=== PATIENT | female | born 1950 | race Caucasian/White ===

== ENCOUNTER 2020-12-15 12:51 | Observation (INO) | payer OTHER ==
[~2020-12-15] VITALS: Ht 167.6 cm; Wt 69.9 kg
[~2020-12-15 12:51] MED LIST changes: -ELIQUIS5 M2 PO; -LANOXIN125 MCG PO; -LOSA25 PO; -METO25ER PO; -MULVITA PO; -NYSTATIN SUSP MT; -SPIR25 PO; -TORSE20 PO; -Vitamin B Comple1 EA PO
[2020-12-15] MEDS ORDERED: MULVITA PO ×2 (13:56)
[2020-12-15 14:00] LABS: BASOPHILS ABSOLUTE AUTO 0.07 K/mm3 (0.00-0.23); BASOPHILS PERCENT AUTO 1 % (0-2); EOSINOPHILS ABSOLUTE AUTO 0.09 K/mm3 (0.00-0.68); EOSINOPHILS PERCENT AUTO 2 % (0-6); Hematocrit 45.1 % (33.0-51.0); Hemoglobin 15.2 g/dL (11.5-16.0); IMMATURE GRAN ABSOLUTE AUTO 0.03 K/mm3 (0.00-0.10); IMMATURE GRAN PERCENT AUTO 1 % (0-1); LYMPHOCYTES ABSOLUTE AUTO 1.86 K/mm3 (0.84-5.20); LYMPHOCYTES PERCENT AUTO 33 % (21-46); MONOCYTES ABSOLUTE AUTO 0.47 K/mm3 (0.16-1.47); MONOCYTES PERCENT AUTO 8 % (4-13); Mean Corpuscular HGB 32.9 pg (26.0-34.0); Mean Corpuscular HGB Conc 33.7 g/dL (31.5-36.5); Mean Corpuscular Volume 98 fL (80-100); Mean Platelet Volume 11.8 fL (9.1-12.4); NEUTROPHILS ABSOLUTE AUTO 3.18 K/mm3 (1.96-9.15); NEUTROPHILS PERCENT AUTO 56 % (41-73); Platelet Count 171 K/mm3 (150-400); RDW Coefficient Variation 12.5 % (11.7-14.2); RDW Standard Deviation 45.1 fL (35.1-46.3); Red Blood Cell Count 4.62 M/mm3 (3.80-5.20)
[2020-12-15 14:19] LABS: Troponin I <0.015 ng/mL (0.000-0.040)
[2020-12-15 14:20] LABS: Alanine Aminotransfer (ALT/SGP 48 U/L (12-78); Albumin, Blood 2.9 g/dL (3.4-5.0); Albumin/Globulin Ratio 0.8 (0.8-1.8); Alk Phos 131 U/L (50-136); Anion Gap 6 mmol/L (6-16); Aspartate Aminotrans (AST/SGOT 92 U/L (12-37); Bilirubin, Total 0.8 mg/dL (0.1-1.0); Blood Urea Nitrogen 9 mg/dL (8-24); Bun/Creatinine Ratio 14.4 (12.0-20.0); CO2, Blood 23 mmol/L (21-32); Calcium, Blood 8.1 mg/dL (8.5-10.1); Chloride, Blood 106 mmol/L (98-108); Creatinine, Blood 0.62 mg/dL (0.40-1.00); Globulin, Blood 3.7 g/dL (2.2-4.0); Glomerular Filtration Rate >60 (60-); Glucose, Blood 85 mg/dL (70-99); Potassium, Blood 4.3 mmol/L (3.5-5.5); Sodium, Blood 135 mmol/L (136-145); Total Protein, Blood 6.6 g/dL (6.4-8.2)
[2020-12-15 15:00] LABS: Ethanol (Alcohol), Blood, Med <3 mg/dL; Magnesium, Blood 1.9 mg/dL (1.6-2.4)
[2020-12-15 15:27] LABS: International Normalized Ratio 1.04; Prothrombin Time Results 11.2 Sec (9.7-11.5)
[2020-12-15] MEDS ORDERED: Vitamin B Comple1 EA PO ×2 (15:42)
--- NOTE | 2020-12-15 17:07 | NUR ---
Echocardiogram completed.
--- NOTE | 2020-12-15 19:20 | NUR ---
ASSUMED CARE OF PT, BEDSIDE REPORT RECEIVED. PT DENIES CP/PRESSURE, DENIES PALPITATIONS, DENIES N/V, DENIES DIZZINESS WHEN UP OOB, DENIES SOB/DYSPNEA. STATES THAT SHE IS ACTUALLY FEELING WELL OTHER THAN BEING HUNGRY SHE HASN'T EATEN MUCH TODAY. WILL CONTACT COMMERCIAL INTELLIGENCE MANAGER FOR DINNER TRAY. PT IS ALERT AND ORIENTED UP TO TOILET IND WITH STAFF IN ROOM FOR SAFETY. SHE USES CALL LIGHT WELL. HEAR RATE IS NOTED TO INCREASE FROM 130S TO 140-150S WITH UP OOB, PRESSURES SOFT BUT MAINTAINING MAP OF THIS TIME. EDEMA NOTED TO BILAT LOWER EXTREMITIES, PT STATES ONGOING X 2 MONTHS AND IS THE REASON FOR HER VISIT TO URGENT CARE TODAY. LUNGS ARE CLEAR THROUGHOUT, SATS MAINTAINING ON ROOM AIR, SPEAKING IN FULL SENTENCES WITHOUT VISIBLE INCREASED WORK OF BREATHING. WILL MONITOR.
--- NOTE | 2020-12-15 19:23 | NUR ---
New Admit from ER TO ICU 2 Pt in for AFIB WITH RVR, treated per emar. Pt states she wants CPR done but does not want to be intubated. code status changed to DNI from DNR. Dr. Vasquez made aware. Pt is A/O X 4, calm and cooperative. Able to follow directions and moves to bedside toilet without assitance. Pitting edema in lower extrems, pt states she has not history of Afib that she is aware of. Denies SOB, CP, and paplations at this time. BP stable and HR 120-150'S in AFIB. Lung sounds clear, on RA, SPO2 > 90%. Call light within reach. Will report to oncoming shift.
[2020-12-15 19:25] LABS: Free Thyroxine 0.83 ng/dL (0.70-1.60)
[2020-12-15 19:28] LABS: Triiodothyronine, Free 1.92 pg/mL (2.18-3.98)
[2020-12-16 03:38] LABS: BASOPHILS ABSOLUTE AUTO 0.06 K/mm3 (0.00-0.23); BASOPHILS PERCENT AUTO 2 % (0-2); EOSINOPHILS PERCENT AUTO 3 % (0-6); Hematocrit 41.5 % (33.0-51.0); Hemoglobin 14.3 g/dL (11.5-16.0); IMMATURE GRAN ABSOLUTE AUTO 0.02 K/mm3 (0.00-0.10); IMMATURE GRAN PERCENT AUTO 1 % (0-1); LYMPHOCYTES ABSOLUTE AUTO 1.43 K/mm3 (0.84-5.20); LYMPHOCYTES PERCENT AUTO 38 % (21-46); MONOCYTES PERCENT AUTO 11 % (4-13); Mean Corpuscular HGB 33.4 pg (26.0-34.0); Mean Corpuscular HGB Conc 34.5 g/dL (31.5-36.5); Mean Corpuscular Volume 97 fL (80-100); Mean Platelet Volume 11.6 fL (9.1-12.4); NEUTROPHILS ABSOLUTE AUTO 1.78 K/mm3 (1.96-9.15); NEUTROPHILS PERCENT AUTO 47 % (41-73); Platelet Count 143 K/mm3 (150-400); RDW Coefficient Variation 12.4 % (11.7-14.2); RDW Standard Deviation 44.4 fL (35.1-46.3); Red Blood Cell Count 4.28 M/mm3 (3.80-5.20); White Blood Cell Count 3.79 K/mm3 (4.00-11.30)
[2020-12-16 03:51] LABS: Anion Gap 5 mmol/L (6-16); Blood Urea Nitrogen 8 mg/dL (8-24); Bun/Creatinine Ratio 14.2 (12.0-20.0); CO2, Blood 24 mmol/L (21-32); Calcium, Blood 8.1 mg/dL (8.5-10.1); Chloride, Blood 108 mmol/L (98-108); Creatinine, Blood 0.57 mg/dL (0.40-1.00); Glomerular Filtration Rate >60 (60-); Glucose, Blood 73 mg/dL (70-99); Potassium, Blood 3.6 mmol/L (3.5-5.5); Sodium, Blood 137 mmol/L (136-145)
--- NOTE | 2020-12-16 05:53 | NUR ---
PT REMAINS ALERT AND ORIENTED THROUGHOUT SHIFT, HAS REPEATEDLY STATED THAT SHE HOPES TO BE DISCHARGED TO HOME THIS AM. AFIB CONTINUES, RATE IMPROVED, 60-70S WHEN AWAKE AND AT REST, HIGH 50S WITH SLEEP, INCREASES TO 120S WITH UP TO TOILET FOR VOIDS. PRESSURES MAINTAINING THROUGHOUT NOC. EDEMA TO BILAT DOES CONTINUE HOWEVER IS MARKEDLY IMPROVED, 1+ OF THIS TIME. LUNGS CLEAR THROUGHOUT WITH DIM BASES BILAT, SATS MAINTAIN ON ROOM AIR, NO INCREASED WORK OF BREATHING THROUGHOUT NOC. UP FREQUENTLY TO TOILET FOR VOIDS AND TOLERATES WELL.
--- NOTE | 2020-12-16 19:25 | NUR ---
PT TRANSPORTED TO UNIT VIA WHEELCHAIR BY [facility] AT 0714 AND HOOKED UP TO TELEMETRY, HEPARIN GTT INFUSING AT 12 UNITS/KG/HR OR 16.8ML/HR AT A 70KG DOSING WEIGHT, REPORT OBTAINED VIA PHONE AT 0743 FROM LEAN ENGINEER, PT IN AFIB IN 120'S UNTIL 1332 WHEN HER RATE DROPPED TO 80'S AND MAINTAINED, PT REPORTS DISPLEASURE ABOUT INCREASED FREQUENCY OF URINATION AFTER ADMINISTRATION OF A DIURETIC RX, PT RECEIVED HEART FAILURE AND ATRIAL FIBRILLATION EDUCATION VERBALLY AT BEDSIDE FROM MEDICAL STUDENT, HEPARIN GTT D/C'ED AT 1118, PT ASKED FOR MAGIC MOUTHWASH EQUIVALENT, DR. ARAGON WAS CALLED AT 1818 AND ORDER WAS PROVIDED, ASIDE FROM REPORTING DISPLEASURE ABOUT MEALS RECEIVED AND ABOUT BEING IN THE HOSPITAL, , PT DENIES ADDITIONAL CONCERNS AT THIS TIME
--- NOTE | 2020-12-17 05:30 | NUR ---
SHIFT SUMMARY PATIENT ALERT AND ORIENTED. HAD NO COMPLAINTS OF PAIN OR SHORTNESS OF BREATH. TELE REPORTED THAT THE PATIENT HAD A 3.17 SECOND PAUSE EARLIER THIS MORNING. PATIENT WAS ASYMPTOMATIC. IVS PATENT AND FLUSHED. BED IN LOWEST POSITION WITH WHEELS LOCKED. CALL LIGHT WITHIN REACH. REPORT GIVEN TO ONCMARY BARBA.
[2020-12-17 05:48] LABS: Anion Gap 5 mmol/L (6-16); Blood Urea Nitrogen 10 mg/dL (8-24); Bun/Creatinine Ratio 14.7 (12.0-20.0); CO2, Blood 27 mmol/L (21-32); Calcium, Blood 8.7 mg/dL (8.5-10.1); Chloride, Blood 102 mmol/L (98-108); Creatinine, Blood 0.68 mg/dL (0.40-1.00); Glomerular Filtration Rate >60 (60-); Glucose, Blood 81 mg/dL (70-99); Potassium, Blood 3.8 mmol/L (3.5-5.5); Sodium, Blood 134 mmol/L (136-145)
--- NOTE | 2020-12-17 06:01 | NUR ---
PHYSICIAN COMMUNICATION CONTACTED YOUTH CAREER SPECIALIST PHYSICIAN, DR LOPEZ, TO NOTIFY HER THAT THE PATIENT EXPERIENCED A 3.7 SECOND PAUSE IN HER HEARTRATE. ALSO INFORMED HER THAT THIS WAS THE SECOND PAUSE SINCE 0000. DR LOPEZ SAID TO STOP THE PATIENT'S METOPROLOL AND NOTIFY THE DAY SHIFT DOCTOR OF THE ISSUE.
[2020-12-17] MEDS ORDERED: ELIQUIS5 M2 PO ×2 (14:13)
[2020-12-17] MEDS ORDERED: LOSA25 PO ×2 (14:14)
[2020-12-17] MEDS ORDERED: LANOXIN125 MCG PO ×2 (14:15)
[2020-12-17] MEDS ORDERED: METO25ER PO ×2 (14:15)
[2020-12-17] MEDS ORDERED: SPIR25 PO ×2 (14:17)
[2020-12-17] MEDS ORDERED: NYSTATIN SUSP MT ×2 (14:17)
[2020-12-17] MEDS ORDERED: TORSE20 PO ×2 (14:19)
--- NOTE | 2020-12-17 15:03 | NUR ---
PATIENT DISCHARGED TO HOME, WILL BE PICKED UP BY A FRIEND. IV SALINE LOCKS REMOVED WITHOUT INCIDENT. TELEMETRY REMOVED. DISCUSSED HEART FAILURE AND NEW MEDICATIONS, GAVE NEXT DOSE INTERVAL TO AVOID CONFUSION ABOUT WHEN TO TAKE THEM. PATIENT VERBALIZED UNDERSTANDING OF D/C INSTRUCTIONS. OFF UNIT VIA W/C AT 1455. NO BELONGINGS LEFT BEHIND IN ROOM.
== END 2020-12-17 14:56 | disposition home or self-care (01) ==
LOC: ER 12:51 → ICUW 17:23 → ICUE 17:23 → PCU 12-16 07:17 → MEDS 12-16 23:38 → ENPENDDIS 12-17 13:26 → MEDS 12-17 14:56
PROVIDERS: Emergency Medicine; Internal Medicine Cardiovascular Disease; Physician Assistant; Student in an Organized Health Care Education/Training Program; ADMIT Internal Medicine
DX: I48.91 Unspecified atrial fibrillation (principal); I50.23 Acute on chronic systolic (congestive) heart failure; I08.1 Rheumatic disorders of both mitral and tricuspid valves; I27.20 Pulmonary hypertension, unspecified; J44.9 Chronic obstructive pulmonary disease, unspecified; R60.9 Edema, unspecified; E07.81 Sick-euthyroid syndrome; I95.2 Hypotension due to drugs; T46.1X5A Adverse effect of calcium-channel blockers, initial encounter; B37.9 Candidiasis, unspecified; F17.210 Nicotine dependence, cigarettes, uncomplicated; E87.70 Fluid overload, unspecified; R06.00 Dyspnea, unspecified; I51.7 Cardiomegaly; J98.4 Other disorders of lung; Z88.0 Allergy status to penicillin; Z88.5 Allergy status to narcotic agent; Z88.2 Allergy status to sulfonamides
CPT/HCPCS: 36415; 71046; 80048; 80053; 83690; 83735; 83880; 84439; 84443; 84481; 84484; 85025; 85610; 85730; 93005; 93010; 96365; 96366; 96375; 96376; 99285-25; A9270; C8929; G0378; G0480; J0610; J1160; J1610; J1644; J3475; J7030; Q9957

== ENCOUNTER → 2020-12-15 | Outpatient (CLI) | payer BC ==
[~2020-12-15] MED LIST: ELIQUIS5 M2 PO; LANOXIN125 MCG PO; LOSA25 PO; METO25ER PO; MULVITA PO; NYSTATIN SUSP MT; SPIR25 PO; TORSE20 PO; VITAMIN D22000 UNIT PO; Vitamin B Comple1 EA PO
[2020-12-15 11:48] LABS: BASOPHILS ABSOLUTE AUTO 0.07 K/mm3 (0.00-0.23); BASOPHILS PERCENT AUTO 1 % (0-2); EOSINOPHILS ABSOLUTE AUTO 0.09 K/mm3 (0.00-0.68); EOSINOPHILS PERCENT AUTO 2 % (0-6); Hematocrit 44.6 % (33.0-51.0); Hemoglobin 15.3 g/dL (11.5-16.0); IMMATURE GRAN ABSOLUTE AUTO 0.03 K/mm3 (0.00-0.10); IMMATURE GRAN PERCENT AUTO 1 % (0-1); LYMPHOCYTES ABSOLUTE AUTO 2.02 K/mm3 (0.84-5.20); LYMPHOCYTES PERCENT AUTO 35 % (21-46); MONOCYTES ABSOLUTE AUTO 0.54 K/mm3 (0.16-1.47); MONOCYTES PERCENT AUTO 9 % (4-13); Mean Corpuscular HGB 33.2 pg (26.0-34.0); Mean Corpuscular HGB Conc 34.3 g/dL (31.5-36.5); Mean Corpuscular Volume 97 fL (80-100); Mean Platelet Volume 11.5 fL (9.1-12.4); NEUTROPHILS ABSOLUTE AUTO 3.08 K/mm3 (1.96-9.15); NEUTROPHILS PERCENT AUTO 53 % (41-73); Platelet Count 174 K/mm3 (150-400); RDW Coefficient Variation 12.5 % (11.7-14.2); RDW Standard Deviation 44.6 fL (35.1-46.3); Red Blood Cell Count 4.61 M/mm3 (3.80-5.20); White Blood Cell Count 5.83 K/mm3 (4.00-11.30)
[2020-12-15 12:07] LABS: Alanine Aminotransfer (ALT/SGP 30 U/L (12-78); Albumin, Blood 3.2 g/dL (3.4-5.0); Albumin/Globulin Ratio 0.8 (0.8-1.8); Alk Phos 126 U/L (40-126); Anion Gap 8 mmol/L (6-16); Aspartate Aminotrans (AST/SGOT 43 U/L (12-37); Bilirubin, Total 0.8 mg/dL (0.1-1.0); Blood Urea Nitrogen 8 mg/dL (8-24); Bun/Creatinine Ratio 10.7 (12.0-20.0); CO2, Blood 25 mmol/L (21-32); Calcium, Blood 8.3 mg/dL (8.5-10.1); Chloride, Blood 100 mmol/L (98-108); Creatinine, Blood 0.75 mg/dL (0.40-1.00); Globulin, Blood 3.8 g/dL (2.2-4.0); Glomerular Filtration Rate >60 (60-); Glucose, Blood 91 mg/dL (70-99); Potassium, Blood 4.4 mmol/L (3.5-5.5); Sodium, Blood 133 mmol/L (136-145); Thyroid Stimulating Hormone 5.186 uIU/mL (0.360-4.800)
[2020-12-15 12:08] LABS: Troponin I <0.017 ng/mL (0.000-0.040)
== END | disposition home or self-care (01) ==
LOC: LAB SHORT 11:40 → LAB 11:40
PROVIDERS: Physician Assistant
DX: R60.9 Edema, unspecified (principal)
CPT/HCPCS: 80053; 83880; 84443; 84484; 85025

== ENCOUNTER → 2021-08-24 | Outpatient (CLI) | payer OTHER ==
[~2021-08-24] MED LIST changes: +ELIQUIS5 M2 PO; +LANOXIN125 MCG PO; +LOSA25 PO; +METO25ER PO; +MULVITA PO; +NYSTATIN SUSP MT; +SPIR25 PO; +TORSE20 PO; +Vitamin B Comple1 EA PO
[2021-08-24 11:43] LABS: Hematocrit 44.5 % (33.0-51.0); Hemoglobin 15.5 g/dL (11.5-16.0); Mean Corpuscular HGB 34.4 pg (26.0-34.0); Mean Corpuscular HGB Conc 34.8 g/dL (31.5-36.5); Mean Corpuscular Volume 99 fL (80-100); RDW Coefficient Variation 12.6 % (11.7-14.2); RDW Standard Deviation 45.8 fL (35.1-46.3)
[2021-08-24 12:04] LABS: Alanine Aminotransfer (ALT/SGP 21 U/L (12-78); Albumin, Blood 3.3 g/dL (3.4-5.0); Albumin/Globulin Ratio 0.9 (0.8-1.8); Alk Phos 73 U/L (40-126); Anion Gap 8 mmol/L (6-16); Aspartate Aminotrans (AST/SGOT 22 U/L (12-37); Bilirubin, Total 0.5 mg/dL (0.1-1.0); Blood Urea Nitrogen 8 mg/dL (8-24); Bun/Creatinine Ratio 11.6 (12.0-20.0); CO2, Blood 26 mmol/L (21-32); Chloride, Blood 99 mmol/L (98-108); Creatinine, Blood 0.69 mg/dL (0.40-1.00); Globulin, Blood 3.7 g/dL (2.2-4.0); Glomerular Filtration Rate >60 (60-); Glucose, Blood 86 mg/dL (70-99); Potassium, Blood 4.3 mmol/L (3.5-5.5); Sodium, Blood 133 mmol/L (136-145); Thyroid Stimulating Hormone 5.044 uIU/mL (0.360-4.800)
[2021-08-24 13:16] LABS: White Blood Cell Count 5.05 K/mm3 (4.00-11.30)
[2021-08-24 13:20] LABS: Digoxin (Lanoxin) 0.09 ug/mL (0.80-2.00)
[2021-08-24 13:23] LABS: BAND PERCENT MAN 2 % (0-8); BASOPHILS ABSOLUTE MAN 0.05 K/mm3 (0.00-0.23); BASOPHILS PERCENT MAN 1 % (0-2); EOSINOPHILS ABSOLUTE MAN 0.05 K/mm3 (0.00-0.68); EOSINOPHILS PERCENT MAN 1 % (0-6); LYMPHOCYTES ABSOLUTE MAN 1.56 K/mm3 (0.84-5.20); LYMPHOCYTES PERCENT MAN 31 % (21-46); MONOCYTES PERCENT MAN 12 % (4-13); NEUTROPHILS ABSOLUTE MAN 2.77 K/mm3 (1.96-9.15); SEG NEUTROPHILS PERCENT MAN 53 % (41-73); TOTAL CELLS COUNTED 100
[2021-08-24 13:26] LABS: Mean Platelet Volume 11.7 fL (9.1-12.4); Platelet Count 154 K/mm3 (150-400)
== END | disposition home or self-care (01) ==
LOC: LAB SHORT 11:35 → LAB 11:35
PROVIDERS: Physician Assistant
DX: I50.9 Heart failure, unspecified (principal); R53.81 Other malaise; R53.83 Other fatigue; R42 Dizziness and giddiness; R79.89 Other specified abnormal findings of blood chemistry
CPT/HCPCS: 80053; 80162; 83880; 84439; 84443; 84481; 84484; 85025

== ENCOUNTER → 2021-08-25 | Outpatient (CLI) | payer OTHER | LOC: LAB SHORT 12:06 | DX: R06.02 Shortness of breath (principal) | CPT/HCPCS: 83880 ==

== ENCOUNTER 2021-08-30 07:00 | Emergency (ER) | payer OTHER ==
[~2021-08-30] VITALS: Ht 165.1 cm; Wt 64.0 kg
[2021-08-30 07:36] LABS: BASOPHILS ABSOLUTE AUTO 0.03 K/mm3 (0.00-0.23); BASOPHILS PERCENT AUTO 1 % (0-2); EOSINOPHILS ABSOLUTE AUTO 0.03 K/mm3 (0.00-0.68); EOSINOPHILS PERCENT AUTO 1 % (0-6); Hematocrit 44.9 % (33.0-51.0); Hemoglobin 15.6 g/dL (11.5-16.0); IMMATURE GRAN ABSOLUTE AUTO 0.01 K/mm3 (0.00-0.10); IMMATURE GRAN PERCENT AUTO 0 % (0-1); LYMPHOCYTES PERCENT AUTO 18 % (21-46); MONOCYTES ABSOLUTE AUTO 0.42 K/mm3 (0.16-1.47); MONOCYTES PERCENT AUTO 8 % (4-13); Mean Corpuscular HGB 33.4 pg (26.0-34.0); Mean Corpuscular HGB Conc 34.7 g/dL (31.5-36.5); Mean Corpuscular Volume 96 fL (80-100); Mean Platelet Volume 11.4 fL (9.1-12.4); NEUTROPHILS ABSOLUTE AUTO 3.63 K/mm3 (1.96-9.15); NEUTROPHILS PERCENT AUTO 72 % (41-73); Platelet Count 177 K/mm3 (150-400); RDW Coefficient Variation 12.2 % (11.7-14.2); RDW Standard Deviation 43.2 fL (35.1-46.3); Red Blood Cell Count 4.67 M/mm3 (3.80-5.20); White Blood Cell Count 5.02 K/mm3 (4.00-11.30)
[2021-08-30 07:53] LABS: Alanine Aminotransfer (ALT/SGP 20 U/L (12-78); Albumin, Blood 3.3 g/dL (3.4-5.0); Albumin/Globulin Ratio 0.9 (0.8-1.8); Alk Phos 75 U/L (50-136); Anion Gap 6 mmol/L (6-16); Aspartate Aminotrans (AST/SGOT 19 U/L (12-37); Bilirubin, Total 0.5 mg/dL (0.1-1.0); Blood Urea Nitrogen 12 mg/dL (8-24); Bun/Creatinine Ratio 21.2 (12.0-20.0); CO2, Blood 28 mmol/L (21-32); Chloride, Blood 97 mmol/L (98-108); Creatinine, Blood 0.57 mg/dL (0.40-1.00); Globulin, Blood 3.7 g/dL (2.2-4.0); Glomerular Filtration Rate >60 (60-); Glucose, Blood 124 mg/dL (70-99); Potassium, Blood 4.2 mmol/L (3.5-5.5); Sodium, Blood 131 mmol/L (136-145)
== END 2021-08-30 09:35 | disposition home or self-care (01) ==
LOC: ER 07:00
PROVIDERS: Emergency Medicine
DX: I48.91 Unspecified atrial fibrillation (principal); I50.9 Heart failure, unspecified; J44.9 Chronic obstructive pulmonary disease, unspecified; F17.210 Nicotine dependence, cigarettes, uncomplicated; Z88.0 Allergy status to penicillin; Z88.2 Allergy status to sulfonamides; Z79.899 Other long term (current) drug therapy
CPT/HCPCS: 71045; 80053; 80162; 83880; 84484; 85025; 93005; 93010; 96374; 96375; 99284-25; J1940; J2765; J7030

== ENCOUNTER → 2021-09-02 | Outpatient (CLI) | payer OTHER ==
[2021-09-04 11:20] LABS: Stool Occult Bld Immuno 1 Negative (NEGATIVE)
== END | disposition home or self-care (01) ==
LOC: LAB SHORT 17:15
PROVIDERS: Family Medicine
DX: Z12.11 Encounter for screening for malignant neoplasm of colon (principal)
CPT/HCPCS: G0328

== ENCOUNTER → 2021-09-09 | Outpatient (CLI) | payer OTHER ==
[2021-09-09 09:48] LABS: BASOPHILS ABSOLUTE AUTO 0.04 K/mm3 (0.00-0.23); BASOPHILS PERCENT AUTO 1 % (0-2); EOSINOPHILS ABSOLUTE AUTO 0.07 K/mm3 (0.00-0.68); EOSINOPHILS PERCENT AUTO 2 % (0-6); Hematocrit 43.8 % (33.0-51.0); IMMATURE GRAN ABSOLUTE AUTO 0.04 K/mm3 (0.00-0.10); IMMATURE GRAN PERCENT AUTO 1 % (0-1); LYMPHOCYTES ABSOLUTE AUTO 1.54 K/mm3 (0.84-5.20); LYMPHOCYTES PERCENT AUTO 32 % (21-46); MONOCYTES ABSOLUTE AUTO 0.51 K/mm3 (0.16-1.47); MONOCYTES PERCENT AUTO 11 % (4-13); Mean Corpuscular HGB 33.9 pg (26.0-34.0); Mean Corpuscular HGB Conc 34.2 g/dL (31.5-36.5); Mean Corpuscular Volume 99 fL (80-100); NEUTROPHILS ABSOLUTE AUTO 2.56 K/mm3 (1.96-9.15); NEUTROPHILS PERCENT AUTO 54 % (41-73); Platelet Count 183 K/mm3 (150-400); RDW Coefficient Variation 12.4 % (11.7-14.2); Red Blood Cell Count 4.43 M/mm3 (3.80-5.20); White Blood Cell Count 4.76 K/mm3 (4.00-11.30)
[2021-09-09 10:06] LABS: Alanine Aminotransfer (ALT/SGP 24 U/L (12-78); Albumin/Globulin Ratio 0.8 (0.8-1.8); Alk Phos 73 U/L (40-126); Anion Gap 8 mmol/L (6-16); Aspartate Aminotrans (AST/SGOT 31 U/L (12-37); Bilirubin, Total 0.6 mg/dL (0.1-1.0); Blood Urea Nitrogen 6 mg/dL (8-24); Bun/Creatinine Ratio 9.1 (12.0-20.0); CO2, Blood 25 mmol/L (21-32); Calcium, Blood 8.1 mg/dL (8.5-10.1); Chloride, Blood 96 mmol/L (98-108); Creatinine, Blood 0.66 mg/dL (0.40-1.00); Globulin, Blood 3.8 g/dL (2.2-4.0); Glomerular Filtration Rate >60 (60-); Glucose, Blood 96 mg/dL (70-99); Magnesium, Blood 1.6 mg/dL (1.6-2.4); Potassium, Blood 4.6 mmol/L (3.5-5.5); Sodium, Blood 129 mmol/L (136-145); Thyroid Stimulating Hormone 4.619 uIU/mL (0.360-4.800); Total Protein, Blood 6.8 g/dL (6.4-8.2)
== END | disposition home or self-care (01) ==
LOC: LAB SHORT 09:44
PROVIDERS: Physician Assistant
DX: R53.83 Other fatigue (principal)
CPT/HCPCS: 80053; 83735; 84443; 85025

== ENCOUNTER → 2021-09-16 | Outpatient (CLI) | payer OTHER ==
[2021-09-17 14:42] LABS: Adenovirus F 40/41 Not Detected (NOT DETECT); Astrovirus Not Detected (NOT DETECT); Campylobacter Sp Not Detected (NOT DETECT); Cryptosporidium Not Detected (NOT DETECT); Cyclospora Cayetanensis Not Detected (NOT DETECT); E. Coli O157 Not Detected (NOT DETECT); Entamoeba Histolytica Not Detected (NOT DETECT); Enteroaggregative E. coli-EAEC Not Detected (NOT DETECT); Enteropathogenic E. coli-EPEC Not Detected (NOT DETECT); Enterotoxigenic E. coli-ETEC Not Detected (NOT DETECT); Giardia Lamblia Not Detected (NOT DETECT); Norovirus GI/GII Not Detected (NOT DETECT); Plesiomonas Shigelloides Not Detected (NOT DETECT); Rotavirus A Not Detected (NOT DETECT); Salmonella Sp Not Detected (NOT DETECT); Sapovirus Not Detected (NOT DETECT); Shiga Toxin-prod E. coli-STEC Not Detected (NOT DETECT); Shigella/Enteroin E. coli-EIEC Not Detected (NOT DETECT); Vibrio Cholerae Not Detected (NOT DETECT); Vibrio Sp Not Detected (NOT DETECT); Yersinia Enterocolitica Not Detected (NOT DETECT)
== END | disposition home or self-care (01) ==
LOC: LAB SHORT 11:35
PROVIDERS: Physician Assistant
DX: R19.7 Diarrhea, unspecified (principal)
CPT/HCPCS: 87507

== ENCOUNTER 2021-09-28 18:19 | Emergency (ER) | payer OTHER ==
[~2021-09-28] VITALS: Ht 165.1 cm; Wt 63.5 kg
[2021-09-28 18:42] LABS: BASOPHILS ABSOLUTE AUTO 0.03 K/mm3 (0.00-0.23); BASOPHILS PERCENT AUTO 1 % (0-2); EOSINOPHILS ABSOLUTE AUTO 0.12 K/mm3 (0.00-0.68); EOSINOPHILS PERCENT AUTO 2 % (0-6); Hematocrit 44.8 % (33.0-51.0); Hemoglobin 15.5 g/dL (11.5-16.0); IMMATURE GRAN ABSOLUTE AUTO 0.03 K/mm3 (0.00-0.10); IMMATURE GRAN PERCENT AUTO 1 % (0-1); LYMPHOCYTES ABSOLUTE AUTO 2.06 K/mm3 (0.84-5.20); LYMPHOCYTES PERCENT AUTO 33 % (21-46); MONOCYTES ABSOLUTE AUTO 0.72 K/mm3 (0.16-1.47); MONOCYTES PERCENT AUTO 11 % (4-13); Mean Corpuscular HGB 33.9 pg (26.0-34.0); Mean Corpuscular HGB Conc 34.6 g/dL (31.5-36.5); Mean Corpuscular Volume 98 fL (80-100); Mean Platelet Volume 11.1 fL (9.1-12.4); NEUTROPHILS ABSOLUTE AUTO 3.36 K/mm3 (1.96-9.15); NEUTROPHILS PERCENT AUTO 53 % (41-73); Platelet Count 190 K/mm3 (150-400); RDW Coefficient Variation 12.2 % (11.7-14.2); RDW Standard Deviation 44.6 fL (35.1-46.3); Red Blood Cell Count 4.57 M/mm3 (3.80-5.20); White Blood Cell Count 6.32 K/mm3 (4.00-11.30)
[2021-09-28 19:02] LABS: Albumin, Blood 3.2 g/dL (3.4-5.0); Albumin/Globulin Ratio 0.8 (0.8-1.8); Bilirubin, Total 0.4 mg/dL (0.1-1.0); Bun/Creatinine Ratio 14.4 (12.0-20.0); Calcium, Blood 8.3 mg/dL (8.5-10.1); Creatinine, Blood 0.49 mg/dL (0.40-1.00); Globulin, Blood 4.2 g/dL (2.2-4.0); Potassium, Blood 5.2 mmol/L (3.5-5.5); Total Protein, Blood 7.4 g/dL (6.4-8.2)
[2021-09-28 19:33] LABS: Digoxin (Lanoxin) 0.09 ug/mL (0.80-2.00)
== END 2021-09-28 21:06 | disposition home or self-care (01) ==
LOC: ER 18:19
PROVIDERS: Emergency Medicine; Physician Assistant
DX: I48.20 Chronic atrial fibrillation, unspecified (principal); J44.9 Chronic obstructive pulmonary disease, unspecified; I50.9 Heart failure, unspecified; F17.210 Nicotine dependence, cigarettes, uncomplicated; I49.3 Ventricular premature depolarization; E87.1 Hypo-osmolality and hyponatremia; Z88.0 Allergy status to penicillin; Z88.2 Allergy status to sulfonamides; Z88.5 Allergy status to narcotic agent; Z79.01 Long term (current) use of anticoagulants; Z79.899 Other long term (current) drug therapy
CPT/HCPCS: 71045; 80053; 80162; 83690; 83880; 84484; 85025

== ENCOUNTER 2023-02-16 07:51 | Day surgery (SDC) | payer OTHER ==
[~2023-02-16] VITALS: Ht 165.1 cm; Wt 62.4 kg
--- NOTE | 2023-02-16 08:24 | NUR ---
02/16/23 0824 Jojo Mcdonald: 0811 YANIV: [id number]
[2023-02-16 09:32] VITALS: BP 114/86
--- NOTE | 2023-02-16 09:38 | NUR ---
02/16/23 0938 Yosvany Cabezas IV REMOVED INTACT. SITE WNL.
== END 2023-02-16 09:45 | disposition home or self-care (01) ==
LOC: ORSCSDS 07:51
PROVIDERS: Student in an Organized Health Care Education/Training Program
PROC: 08RJ3JZ Replacement of Right Lens with Synthetic Substitute, Percutaneous Approach (ICD-10-PCS; principal; 2023-02-16 09:00)
DX: H25.13 Age-related nuclear cataract, bilateral (principal); I48.91 Unspecified atrial fibrillation; I50.9 Heart failure, unspecified; I63.9 Cerebral infarction, unspecified; Z86.73 Personal history of transient ischemic attack (TIA), and cerebral infarction without residual deficits; F17.210 Nicotine dependence, cigarettes, uncomplicated; Z79.899 Other long term (current) drug therapy
CPT/HCPCS: J2250; J7040; V2632

== ENCOUNTER 2023-04-05 12:31 | Day surgery (SDC) | payer OTHER ==
[~2023-04-05] VITALS: Ht 165.1 cm; Wt 59.4 kg
--- NOTE | 2023-04-05 12:57 | NUR ---
04/05/23 1257 Thais Basilio AT 1251 PLEDGET AT 1252
[2023-04-05 14:16] VITALS: BP 92/66
--- NOTE | 2023-04-05 14:17 | NUR ---
04/05/23 1417 Yosvany Cabezas IV REMOVED INTACT. SITE WNL. PT DENIES DIZZINESS, SOB, CHEST PAIN AND OTHER CARDIAC/RESPIRATORY SYMPTOMS. NONE WERE OBSERVED.
== END 2023-04-05 14:15 | disposition home or self-care (01) ==
LOC: ORSCSDS 12:31
PROVIDERS: Student in an Organized Health Care Education/Training Program
PROC: 08RK3JZ Replacement of Left Lens with Synthetic Substitute, Percutaneous Approach (ICD-10-PCS; principal; 2023-04-05 13:45)
DX: H25.12 Age-related nuclear cataract, left eye (principal); I48.91 Unspecified atrial fibrillation; J44.9 Chronic obstructive pulmonary disease, unspecified; Z86.73 Personal history of transient ischemic attack (TIA), and cerebral infarction without residual deficits; F17.210 Nicotine dependence, cigarettes, uncomplicated; R56.9 Unspecified convulsions; Z79.01 Long term (current) use of anticoagulants; Z79.899 Other long term (current) drug therapy
CPT/HCPCS: J2250; J3010; J7040; V2632

== ENCOUNTER 2023-06-14 15:19 | Inpatient (IN) | payer OTHER ==
[~2023-06-14] VITALS: Ht 165.1 cm; Wt 57.8 kg
[2023-06-14] VITALS (13 sets, daily range): BP systolic 77–116; BP diastolic 55–79
[2023-06-14 16:35] LABS: Magnesium, Blood 1.6 mg/dL (1.6-2.4)
[2023-06-14 16:42] LABS: Albumin, Blood 3.4 g/dL (3.4-5.0); Albumin/Globulin Ratio 0.9 (0.8-1.8); Bilirubin, Total 0.9 mg/dL (0.1-1.0); Bun/Creatinine Ratio 18.1 (12.0-20.0); Calcium, Blood 9.1 mg/dL (8.5-10.1); Creatinine, Blood 0.94 mg/dL (0.40-1.00); Globulin, Blood 3.8 g/dL (2.2-4.0); Potassium, Blood 2.3 mmol/L (3.5-5.5); Total Protein, Blood 7.2 g/dL (6.4-8.2)
[2023-06-14 16:45] LABS: BASOPHILS ABSOLUTE AUTO 0.02 K/mm3 (0.00-0.23); BASOPHILS PERCENT AUTO 0 % (0-2); EOSINOPHILS ABSOLUTE AUTO 0.04 K/mm3 (0.00-0.68); EOSINOPHILS PERCENT AUTO 1 % (0-6); Hematocrit 44.2 % (33.0-51.0); Hemoglobin 16.4 g/dL (11.5-16.0); IMMATURE GRAN ABSOLUTE AUTO 0.05 K/mm3 (0.00-0.10); IMMATURE GRAN PERCENT AUTO 1 % (0-1); LYMPHOCYTES PERCENT AUTO 29 % (21-46); MONOCYTES ABSOLUTE AUTO 0.55 K/mm3 (0.16-1.47); MONOCYTES PERCENT AUTO 10 % (4-13); Mean Corpuscular HGB 33.5 pg (26.0-34.0); Mean Corpuscular Volume 90 fL (80-100); Mean Platelet Volume 10.7 fL (9.1-12.4); NEUTROPHILS ABSOLUTE AUTO 3.34 K/mm3 (1.96-9.15); NEUTROPHILS PERCENT AUTO 60 % (41-73); NRBC ABSOLUTE 0.02 K/mm3 (0.00-0.02); NRBC Auto 0.4 /100 WBC (0.0-0.2); Platelet Count 163 K/mm3 (150-400); RDW Coefficient Variation 11.7 % (11.7-14.2); RDW Standard Deviation 38.5 fL (35.1-46.3); Red Blood Cell Count 4.89 M/mm3 (3.80-5.20)
[2023-06-14 16:50] LABS: Mean Corpuscular HGB Conc 37.1 g/dL (31.5-36.5)
[2023-06-14] MEDS ORDERED: TORS10 PO (17:31)
[2023-06-14 17:39] LABS: Phosphorus, Blood 4.3 mg/dL (2.5-4.9); Thyroid Stimulating Hormone 3.99 uIU/mL (0.360-4.800)
[2023-06-14 18:51] LABS: Ethanol (Alcohol), Blood, Med <3 mg/dL
[2023-06-14 19:24] LABS: Influenza A, PCR NEGATIVE (NEGATIVE); Influenza B, PCR NEGATIVE (NEGATIVE); Resp Syncytial Virus, PCR NEGATIVE (NEGATIVE); SARS-Cov-2 (COVID-19) PCR, MMC NEGATIVE (NEGATIVE)
[2023-06-14 21:08] LABS: Magnesium, Blood 2.6 mg/dL (1.6-2.4)
[2023-06-14 21:17] LABS: Albumin, Blood 3.1 g/dL (3.4-5.0); Anion Gap 8 mmol/L (6-16); Blood Urea Nitrogen 17 mg/dL (8-24); Bun/Creatinine Ratio 22.3 (12.0-20.0); CO2, Blood 36 mmol/L (21-32); Calcium, Blood 8.6 mg/dL (8.5-10.1); Chloride, Blood 75 mmol/L (98-108); Creatinine, Blood 0.76 mg/dL (0.40-1.00); Glomerular Filtration Rate 84 (60-); Glucose, Blood 97 mg/dL (70-99); Phosphorus, Blood 3.7 mg/dL (2.5-4.9); Potassium, Blood 2.7 mmol/L (3.5-5.5); Sodium, Blood 119 mmol/L (136-145)
[2023-06-14] MEDS ORDERED: ALEN70 (21:52)
[2023-06-14] MEDS ORDERED: METO100ER (21:54)
[2023-06-14] MEDS ORDERED: ALDACTONE25 MG PO (21:57)
[2023-06-14] MEDS ORDERED: TORSE20 PO (21:58)
--- NOTE | 2023-06-14 22:39 | NUR ---
ASSUMED CARE OF PATIENT AT 2116 AFTER ARRIVAL FROM ED. SEE SHIFT ASSESSMENT FOR FULL ASSESSMENT DETAILS.
[2023-06-14 23:43] LABS: Bun/Creatinine Ratio 21.1 (12.0-20.0); Calcium, Blood 8.1 mg/dL (8.5-10.1); Creatinine, Blood 0.71 mg/dL (0.40-1.00); Potassium, Blood 2.5 mmol/L (3.5-5.5)
[2023-06-15] VITALS (58 sets, daily range): BP systolic 48–138; BP diastolic 28–104
[2023-06-15 03:38] LABS: Albumin, Blood 2.8 g/dL (3.4-5.0); Anion Gap 4 mmol/L (6-16); Blood Urea Nitrogen 14 mg/dL (8-24); Bun/Creatinine Ratio 21.1 (12.0-20.0); CO2, Blood 35 mmol/L (21-32); Calcium, Blood 8.4 mg/dL (8.5-10.1); Chloride, Blood 85 mmol/L (98-108); Creatinine, Blood 0.66 mg/dL (0.40-1.00); Glomerular Filtration Rate 94 (60-); Glucose, Blood 90 mg/dL (70-99); Magnesium, Blood 2.2 mg/dL (1.6-2.4); Potassium, Blood 3.1 mmol/L (3.5-5.5); Sodium, Blood 124 mmol/L (136-145); Uric Acid, Blood 6.4 mg/dL (2.6-6.0)
[2023-06-15 03:56] LABS: BASOPHILS ABSOLUTE AUTO 0.03 K/mm3 (0.00-0.23); BASOPHILS PERCENT AUTO 1 % (0-2); EOSINOPHILS ABSOLUTE AUTO 0.04 K/mm3 (0.00-0.68); EOSINOPHILS PERCENT AUTO 1 % (0-6); Hematocrit 39.6 % (33.0-51.0); IMMATURE GRAN ABSOLUTE AUTO 0.04 K/mm3 (0.00-0.10); IMMATURE GRAN PERCENT AUTO 1 % (0-1); LYMPHOCYTES ABSOLUTE AUTO 1.36 K/mm3 (0.84-5.20); LYMPHOCYTES PERCENT AUTO 30 % (21-46); MONOCYTES ABSOLUTE AUTO 0.42 K/mm3 (0.16-1.47); MONOCYTES PERCENT AUTO 9 % (4-13); Mean Corpuscular HGB Conc 37.4 g/dL (31.5-36.5); Mean Corpuscular Volume 91 fL (80-100); Mean Platelet Volume 11.4 fL (9.1-12.4); NEUTROPHILS ABSOLUTE AUTO 2.72 K/mm3 (1.96-9.15); NEUTROPHILS PERCENT AUTO 59 % (41-73); Platelet Count 157 K/mm3 (150-400); RDW Coefficient Variation 11.8 % (11.7-14.2); RDW Standard Deviation 39.3 fL (35.1-46.3); Red Blood Cell Count 4.35 M/mm3 (3.80-5.20); White Blood Cell Count 4.61 K/mm3 (4.00-11.30)
[2023-06-15 04:07] LABS: Hemoglobin 14.8 g/dL (11.5-16.0)
--- NOTE | 2023-06-15 06:20 | NUR ---
SHIFT SUMMARY PT REMAINED ALERT AND ORIENTED THROUGHOUT ENTIRETY OF SHIFT. SHE WAS ABLE TO FOLLOW COMMANDS AND MAKE PURPOSEFUL MOVEMENTS. DENIED PAIN. PT IN AFIB WITH HR IN 30'S-40'S. DENIES CHEST PAIN. BP STABLE. MI ON RA THROUGHOUT ENTIRETY OF SHIFT. CONTINENT, UTILIZES BEDPAN. NO WITHDRAWAL SYMPTOMS AT THIS TIME. INDEPENDENT IN BED. POWERGLIDE INFILTRATED. WILL GIVE REVERSAL AND WRAP SITE AFTERWARDS. CALL LIGHT IN REACH.
[2023-06-15 07:45] LABS: Potassium, Blood 3.2 mmol/L (3.5-5.5)
[2023-06-15 11:18] LABS: International Normalized Ratio 1.07; Prothrombin Time Results 11.2 Sec (9.7-11.5)
[2023-06-15 11:19] LABS: Anti-Xa UFH, PHA Monitoring >1.50 IU/mL
[2023-06-15 14:06] LABS: Alanine Aminotransfer (ALT/SGP 22 U/L (12-78); Albumin, Blood 2.7 g/dL (3.4-5.0); Albumin/Globulin Ratio 0.8 (0.8-1.8); Alk Phos 70 U/L (50-136); Anion Gap 5 mmol/L (6-16); Aspartate Aminotrans (AST/SGOT 35 U/L (12-37); Bilirubin, Total 0.7 mg/dL (0.1-1.0); Blood Urea Nitrogen 10 mg/dL (8-24); Bun/Creatinine Ratio 18.6 (12.0-20.0); CO2, Blood 30 mmol/L (21-32); Calcium, Blood 8.6 mg/dL (8.5-10.1); Chloride, Blood 90 mmol/L (98-108); Creatinine, Blood 0.54 mg/dL (0.40-1.00); Globulin, Blood 3.6 g/dL (2.2-4.0); Glomerular Filtration Rate 98 (60-); Glucose, Blood 126 mg/dL (70-99); Magnesium, Blood 2.2 mg/dL (1.6-2.4); Potassium, Blood 3.3 mmol/L (3.5-5.5); Sodium, Blood 125 mmol/L (136-145); Total Protein, Blood 6.3 g/dL (6.4-8.2)
[2023-06-15 14:11] LABS: BASOPHILS ABSOLUTE AUTO 0.03 K/mm3 (0.00-0.23); BASOPHILS PERCENT AUTO 1 % (0-2); EOSINOPHILS ABSOLUTE AUTO 0.04 K/mm3 (0.00-0.68); EOSINOPHILS PERCENT AUTO 1 % (0-6); Hematocrit 40.7 % (33.0-51.0); Hemoglobin 15.1 g/dL (11.5-16.0); IMMATURE GRAN ABSOLUTE AUTO 0.03 K/mm3 (0.00-0.10); IMMATURE GRAN PERCENT AUTO 1 % (0-1); LYMPHOCYTES PERCENT AUTO 32 % (21-46); MONOCYTES ABSOLUTE AUTO 0.55 K/mm3 (0.16-1.47); MONOCYTES PERCENT AUTO 10 % (4-13); Mean Corpuscular HGB 33.9 pg (26.0-34.0); Mean Corpuscular HGB Conc 37.1 g/dL (31.5-36.5); Mean Corpuscular Volume 91 fL (80-100); Mean Platelet Volume 11.2 fL (9.1-12.4); NEUTROPHILS ABSOLUTE AUTO 3.26 K/mm3 (1.96-9.15); NEUTROPHILS PERCENT AUTO 57 % (41-73); Platelet Count 170 K/mm3 (150-400); RDW Coefficient Variation 11.9 % (11.7-14.2); RDW Standard Deviation 39.9 fL (35.1-46.3); Red Blood Cell Count 4.46 M/mm3 (3.80-5.20); White Blood Cell Count 5.71 K/mm3 (4.00-11.30)
--- NOTE | 2023-06-15 18:37 | NUR ---
SUMMARY PT A/O X4 RESTING IN BED. PT STILL HAVING CARDIAC PAUSES AT TIMES. DR. RAMAN AT BEDSIDE THIS AM WANTED TO REPLACE ELECTROLYTES AND SEE IF IT IMPROVED BEFORE CONSULTING CARDIOLOGY. PT HAD BEEN ASYMPTOMATIC DURING THE MORNING. AT 1319 MONITOR WAS ALARMING PAUSE THEN ASYSTOLE THEN PT HAD A 7.26 SECOND PAUSE, RAN IN THE ROOM PT WAS CONSCIOUS BUT PALE AND STATING "I FEEL SICK". PT'S RATE CAME BACK WITHOUT INTERVENTION BUT ON STAYING ON ZOLL. PT GOT A DOSE OF ZOFRAN. DR. WEBB CONSULTED AND TO BEDSIDE. WANTS TO WAIT UNTIL TUESDAY FOR PACEMAKER SINCE SHE HAS BEEN ON ELIQUIS. THE REST OF THE AFTERNOON PT WAS ASYMPTOMATIC AGAIN. DENIES CP OR SOB. THIS EVENING PT HAD AN 11 SECOND PAUSE. PT WAS BARELY CONSCIOUS, NAUSEATED, AND PALE. EXTERNALLY PACED BRIEFLY UNTIL HER INTRINSIC RHYTHM RETURNED. PT IS NOW A/O X4 AGAIN AND JOKING WITH STAFF. DR. WEBB NOTIFIED AND ELEVATED MOTORMAN TEAM ACTIVATED. REMAINS ON ZOLL AND NAUSEA HAS RESOLVED. WILL REPORT TO ONCOMING RN.
--- NOTE | 2023-06-15 19:13 | NUR ---
PT TAKEN TO MERCHANDISE DISPLAYER WITH MERCHANDISE DISPLAYER STAFF AT 1900
--- NOTE | 2023-06-15 19:13 | NUR ---
ASSUMED CARE OF PATIENT AT 1900. PATIENT BEING PREPPED FOR TRANSFER TO DANCING INSTRUCTOR FOR TRANSVENOUS PACING. SEE SHIFT ASSESSMENT FOR FULL ASSESSMENT DETAILS.
--- NOTE | 2023-06-15 22:03 | NUR ---
PATIENT BACK TO ROOM FROM [employer] WORK[employer] AT 2019 S/P TRANSVENOUS PACER. PACER SETTINGS RATE 50, SENSING 3, OUTPUT 5. DR. WEBB AT BEDSIDE, CONCERNS PACER NOT SENSING PROPERLY AND SENSE CHANGED FROM 3 TO 2. PACER APPEARED TO BE SENSING AND HAD GOOD CAPTURE UNTIL APPROX 2100, APPEARED TO NOT BE SENSING PROPERLY. CALLED DR. WEBB AND SENSE CHANGED TO 1. PACER THEN APPEARED TO NOT CAPTURE SEVERAL TIMES. TO BEDSIDE AND ADVANCED CATHETER APPROX .5-1 CM. SETTINGS RATE 50, OUTPUT 5, SENSE 2. PATIENT HEART RATE REMAINS ABOVE 50s. VERBAL ORDERS TO CHANGE SENSE TO 1 IF NEEDED AND RATE UP TO 80 IF NEEDED.
--- NOTE | 2023-06-15 22:46 | NUR ---
TRANSVENOUS PACER NO LONGER GETTING CAPTURE ON MOST BEATS, ATTEMPTED TO CHANGE RATE AND SENSE PER DR. WEBB, HR DROPS TO 40s OCCASIONALLY. DR. WEBB CALLED AND PATIENT TO GO BACK TO [facility].
--- NOTE | 2023-06-15 23:16 | NUR ---
PT TO SENIOR COMMISSARY AGENT WITH SENIOR COMMISSARY AGENT RN'S AT 4512
[2023-06-15 23:17] LABS: Bun/Creatinine Ratio 14.9 (12.0-20.0); Calcium, Blood 8.3 mg/dL (8.5-10.1); Creatinine, Blood 0.54 mg/dL (0.40-1.00); Potassium, Blood 3.5 mmol/L (3.5-5.5)
[2023-06-16] VITALS (68 sets, daily range): BP systolic 89–154; BP diastolic 54–128
--- NOTE | 2023-06-16 00:55 | NUR ---
PT BACK TO ICU 9 FROM BEHAVIORAL INTERVENTION SPECIALIST AT 0000
[2023-06-16 03:19] LABS: Hematocrit 39.2 % (33.0-51.0); Hemoglobin 14.3 g/dL (11.5-16.0)
[2023-06-16 03:35] LABS: Albumin, Blood 2.5 g/dL (3.4-5.0); Anion Gap 2 mmol/L (6-16); Blood Urea Nitrogen 6 mg/dL (8-24); Bun/Creatinine Ratio 10.9 (12.0-20.0); CO2, Blood 30 mmol/L (21-32); Calcium, Blood 8.1 mg/dL (8.5-10.1); Chloride, Blood 98 mmol/L (98-108); Creatinine, Blood 0.55 mg/dL (0.40-1.00); Glomerular Filtration Rate 98 (60-); Glucose, Blood 87 mg/dL (70-99); Phosphorus, Blood 2.2 mg/dL (2.5-4.9); Potassium, Blood 3.5 mmol/L (3.5-5.5); Sodium, Blood 130 mmol/L (136-145)
--- NOTE | 2023-06-16 06:13 | NUR ---
SHIFT SUMMARY BEFORE REPORT PT WAS NOTED TO HAVE AN 11 SECOND PAUSE AND WAS SYMPTOMATIC. VP TRAINING WAS ACTIVED AND PT WAS TRANSFERRED FOR TRANSVENOUS PACING. SHE RETURNED FROM THE VP TRAINING AT 2019. AROUND 2099 PACER DID NOT APPEAR TO BE SENSING PROPERLY. DR. WEBB CAME TO [facility] AND CHANGED PACER SETTINGS AND ADVANCED CATHETHER WELL (SEE PREVIOUS NOTES). PT BACK TO VP TRAINING AT 2313 AND RETURNED AT APPROXIMATELY 0000. DENIES SOB AND CP. PT REMAINED ALERT AND ORIENTED THROUGHOUT ENTIRETY OF SHIFT. ON RA UNTIL SHE ATTEMPTED TO GO TO SLEEP, AND WAS PLACED ON 2LPM WITH O2 SATURATIONS >95%. NO BM THIS SHIFT. UTILIZING BED DELACRUZ TO VOID. LAC INFUSING NS AND SODIUM PHOSPHATE. PER DR. LORD - NS TO BE STOPPED 06/16/23 @ 1200. CALL LIGHT IN REACH. WILL CONTINUE TO MONITOR AND REPORT TO ONCOMING RN.
--- NOTE | 2023-06-16 09:05 | NUR ---
CALLED DR. WEBB TO INFORM HIM OF A COUPLE SHORT RUNS OF VTACH. PT IS NAUSEATED AND STATES SHE FEELS DIZZY. DR. WEBB IS COMING TO SEE THE PT. TEMP PACER TO [facility].
--- NOTE | 2023-06-16 18:09 | NUR ---
SUMMARY PT A/O X4. DENIES CP OR SOB. STATES SHE FEELS DIZZY SOMETIMES. POOR APPETITE. PT HAS HAD A FEW RUNS OF VTACH AROUND [address] WEBB AWARE. TEMP PACER TO RIJ CAPTURING WITH SET RATE OF 50. DR. WEBB STARTED METOPROLOL TODAY. PT CAN MOVE SELF AROUND IN BED AND IS CONSCIOUS OF PACER TO RIJ. NO OTHER CHANGES TODAY. WILL BE NPO AFTER MIDNIGHT FOR PERMANENT PACER TOMORROW. CALL LIGHT IN REACH AND PT USES APPROPRIATELY.
--- NOTE | 2023-06-16 19:36 | NUR ---
ASSUMED CARE OF PATIENT AT 1900. FAMILY AT BEDSIDE. NO ACUTE NEEDS IDENTIFIED AT THIS TIME. SEE SHIFT ASSESSMENT FOR FULL ASSESSMENT DETAILS.
[2023-06-17] VITALS (45 sets, daily range): BP systolic 89–156; BP diastolic 51–142
[2023-06-17 03:53] LABS: BASOPHILS ABSOLUTE AUTO 0.02 K/mm3 (0.00-0.23); BASOPHILS PERCENT AUTO 0 % (0-2); EOSINOPHILS ABSOLUTE AUTO 0.02 K/mm3 (0.00-0.68); EOSINOPHILS PERCENT AUTO 0 % (0-6); Hematocrit 40.8 % (33.0-51.0); Hemoglobin 14.6 g/dL (11.5-16.0); IMMATURE GRAN ABSOLUTE AUTO 0.04 K/mm3 (0.00-0.10); IMMATURE GRAN PERCENT AUTO 0 % (0-1); LYMPHOCYTES ABSOLUTE AUTO 1.31 K/mm3 (0.84-5.20); LYMPHOCYTES PERCENT AUTO 15 % (21-46); MONOCYTES ABSOLUTE AUTO 0.57 K/mm3 (0.16-1.47); MONOCYTES PERCENT AUTO 6 % (4-13); Mean Corpuscular HGB 33.7 pg (26.0-34.0); Mean Corpuscular HGB Conc 35.8 g/dL (31.5-36.5); Mean Corpuscular Volume 94 fL (80-100); Mean Platelet Volume 10.8 fL (9.1-12.4); NEUTROPHILS ABSOLUTE AUTO 6.99 K/mm3 (1.96-9.15); NEUTROPHILS PERCENT AUTO 78 % (41-73); Platelet Count 154 K/mm3 (150-400); RDW Coefficient Variation 12.2 % (11.7-14.2); RDW Standard Deviation 42.6 fL (35.1-46.3); Red Blood Cell Count 4.33 M/mm3 (3.80-5.20); White Blood Cell Count 8.95 K/mm3 (4.00-11.30)
[2023-06-17 04:12] LABS: Albumin, Blood 2.5 g/dL (3.4-5.0); Albumin/Globulin Ratio 0.7 (0.8-1.8); Bilirubin, Total 1.1 mg/dL (0.1-1.0); Bun/Creatinine Ratio 7.4 (12.0-20.0); Calcium, Blood 8.4 mg/dL (8.5-10.1); Creatinine, Blood 0.54 mg/dL (0.40-1.00); Globulin, Blood 3.5 g/dL (2.2-4.0); Magnesium, Blood 1.7 mg/dL (1.6-2.4); Phosphorus, Blood 2.5 mg/dL (2.5-4.9); Potassium, Blood 3.5 mmol/L (3.5-5.5)
--- NOTE | 2023-06-17 06:40 | NUR ---
SHIFT SUMMARY PT REMAINED ALERT AND ORIENTED THROUGHOUT ENTIRETY OF SHIFT. MONITOR SHOWED PERIODS OF TACHY, HR 70'S-160'S. MEDICATED PER EMAR. SHE IS SCHEDULED TO HAVE PERMANENT PACEMAKER PLACED AT 0900. ON 2LPM O2 WITH SATURATIONS >95%. NO BM TODAY AND HAS BEEN NPO SINCE MIDNIGHT IN PREPARATION FOR PROCEDURE. UTILIZES BEDPAN. NEW PIV PLACED TO GAYLE PER DR. WEBB WHICH DRAWS AND FLUSHES WELL. LFA FLUSHES WELL. RAC INFUSING NS AT 50mL/HR. CALL LIGHT IN REACH. WILL CONTINUE TO MONITOR AND REPORT TO ONCOMING NURSE.
--- NOTE | 2023-06-17 07:00 | NUR ---
ASSUMPTION OF CARE BEDSIDE REPORT RECEIVED. PT IS ALERT, PARTICIPATES IN CONVERSATION. SHE HAS A RIJ TRANSVENOUS PACEMAKER IN PLACE WITH SETTINGS 50//3. AFIB ON MONITOR WITH RATE VARYING BETWEEN 80S-150S. HR INCREASES WITH ANY MOVEMENT OR EXCERTION. PT DENIES CP, DISCOMFORT, OR SOB DURING THESE EPISODES. BP STABLE WITH MAP >65. NPO SINCE MIDNIGHT. SHE IS RECEIVING NS 50ML/HR. BED IN LOW POSITION, CALL LIGHT WITHIN REACH.
--- NOTE | 2023-06-17 07:30 | NUR ---
DR WEBB AT BEDSIDE.
--- NOTE | 2023-06-17 09:46 | NUR ---
PT TAKEN TO WOOD CASKET ASSEMBLER AT THIS TIME
--- NOTE | 2023-06-17 13:27 | NUR ---
POST PACER: PATIENT ARRIVES TO PCU 18 AT 1152 VIA BED. ALERT AND ORIENTED X4. PERRLA, GLASSES AT BEDSIDE. DENTURES IN PLACE. PATIENT STATES SHE IS IND AT BASELINE AND DOES NOT USE ANY WALKER OR CANE. MOVING EXTREMITIES WNL. S/P PACER PRECAUTIONS REVIEWED. DR. WEBB TO BEDSIDE. ORDERS FOR ICE PACK OVER PACER SITE FOR 4 HOURS AND NO SLING. CHEST XRAY COMPLETED. TELE SHOWING PACED AFIB WITH HR 70-80'S. SBP 90-110'S. DENIES CHEST PAIN/PRESSURE/PALPITATIONS. S/P PACER PRECAUTIONS REVIEWED AND WRITTEN INSTRUCTIONS PROVIDED WELL. IV SALINE INFUSING PER EMAR. PACER SITE WNL WITH VERY SCANT DRAINAGE ON DRESSING. NO SIGNS OF HEMATOMA. LEFT ARM RESTING ON PILLOW. PPP. PO METOPROLOL GIVEN PER EMAR. POST PROCEDURE VITALS IN PROGRESS. PLAN FOR CHEST XRAY IN AM. ON ROOM AIR SATING ABOVE 95%. LUNGS SOUNDING COARSE. PATIENT STATES SHE IS EVERYDAY SMOKER. COARSE SOUNDING COUGH WITH SPUTUM PRODUCTION. PATIENT REQUESTING SUCTION SET UP. EVEN AND UNLABORED RESPIRATIONS. BOWEL TONES PRESENT. DIET ORDERS IN PLACE POST PROCEDURE. EATING AND DRINKING WNL. FLUID RESTRICTION IN PLACE. STAT SODIUM ORDERED POST PROCEDURE PER DR. LORD. THIS RN PLACED CALL TO UPDATE DR. LORD ON SODIUM RESULTS. ORDERS TO DISCONTINUE NS AT 1500 ON 06/17. NURSE NOTIFY ORDERS IN PLACE. CALL LIGHT IN REACH. PATIENT WATCHING TV AT THIS TIME AND DENIES NEEDS. SON AND FRIEND BY TO VISIT, UPDATED BY THIS RN.
[2023-06-17 15:47] LABS: ALDOSTERONE 26.3 ng/dL; ALDOSTERONE/RENINACTIVITY CALC 9.1 ratio (<=25.0); RENIN ACTIVITY 2.9 ng/mL/hr
--- NOTE | 2023-06-17 16:36 | NUR ---
PATIENT UP TO BATHROOM WITH ONE PERSON ASSIST. ABLE TO FOLLOW LEFT SHOULDER PRECAUTIONS WITH REMINDERS. WHEN UP TO BATHROOM PATIENT HR TACHING UP TO 140-150'S. PATIENT DENIES CHEST PAIN/PRESSURE/PALPIATIONS, SOB, DIZZINESS. BACK TO BED AND HR 80-110'S. SBP 100'S.
--- NOTE | 2023-06-17 16:54 | NUR ---
DR. COOPER ON UNIT AND THIS RN MENTIONED PATIENT HR IN THE 150'S WITH ACTIVITY UP TO BATHROOM, SEE PREVIOUS NOTE. DR. COOPER TO PLACE ORDER CHANGES TO METOPROLOL. THIS RN ALSO MENTIONED HOME MED REC NOT BEING ACCURATE ON HOME METOPROLOL SUCCINATE DOSE. THIS RN ABLE TO SEE PATIENT WAS MAILED METOPROLOL SUCCINATE 100MG PO BID ON 05/04/24 WHICH WAS PRESCRIBED BY DR. MARCIAL. PATIENT CONFIRMED THIS DOSE WITH THIS RN AND HAD HAND WRITTEN MEDICATION LIST IN PURSE THAT THIS RN WAS ABLE TO CONFIRM.
--- NOTE | 2023-06-17 17:10 | NUR ---
PATIENT HAD 5 RUN BEAT OF VTACH. DR. WEBB CALLED AND UPDATED HR UP TO 150'S WHEN UP TO BATHROOM, 5 RUN BEAT OF VTACH AND INCREASE OF METOPROLOL SUCCINATE DOSE. NO NEW ORDERS FOR THIS RN TO PLACE. PLAN TO MONITOR BLOOD PRESSURE WITH INCREASE DOSE OF METOPROLOL.
[2023-06-17 21:09] LABS: BASOPHILS ABSOLUTE AUTO 0.04 K/mm3 (0.00-0.23); BASOPHILS PERCENT AUTO 1 % (0-2); EOSINOPHILS ABSOLUTE AUTO 0.06 K/mm3 (0.00-0.68); EOSINOPHILS PERCENT AUTO 1 % (0-6); Hematocrit 38.1 % (33.0-51.0); Hemoglobin 13.8 g/dL (11.5-16.0); IMMATURE GRAN ABSOLUTE AUTO 0.03 K/mm3 (0.00-0.10); IMMATURE GRAN PERCENT AUTO 0 % (0-1); LYMPHOCYTES ABSOLUTE AUTO 1.02 K/mm3 (0.84-5.20); LYMPHOCYTES PERCENT AUTO 14 % (21-46); MONOCYTES ABSOLUTE AUTO 0.53 K/mm3 (0.16-1.47); MONOCYTES PERCENT AUTO 8 % (4-13); Mean Corpuscular HGB 34.4 pg (26.0-34.0); Mean Corpuscular HGB Conc 36.2 g/dL (31.5-36.5); Mean Corpuscular Volume 95 fL (80-100); Mean Platelet Volume 11.1 fL (9.1-12.4); NEUTROPHILS ABSOLUTE AUTO 5.43 K/mm3 (1.96-9.15); NEUTROPHILS PERCENT AUTO 76 % (41-73); Platelet Count 149 K/mm3 (150-400); RDW Coefficient Variation 12.3 % (11.7-14.2); RDW Standard Deviation 43.5 fL (35.1-46.3); Red Blood Cell Count 4.01 M/mm3 (3.80-5.20); White Blood Cell Count 7.11 K/mm3 (4.00-11.30)
[2023-06-18] VITALS (9 sets, daily range): BP systolic 88–136; BP diastolic 55–89
[2023-06-18 05:36] LABS: Hematocrit 38.4 % (33.0-51.0); Hemoglobin 13.7 g/dL (11.5-16.0)
[2023-06-18 06:14] LABS: Magnesium, Blood 1.6 mg/dL (1.6-2.4)
[2023-06-18 06:15] LABS: Albumin, Blood 2.2 g/dL (3.4-5.0); Anion Gap 4 mmol/L (6-16); Blood Urea Nitrogen 3 mg/dL (8-24); Bun/Creatinine Ratio 6.8 (12.0-20.0); CO2, Blood 25 mmol/L (21-32); Calcium, Blood 8.6 mg/dL (8.5-10.1); Chloride, Blood 104 mmol/L (98-108); Creatinine, Blood 0.44 mg/dL (0.40-1.00); Glomerular Filtration Rate 103 (60-); Glucose, Blood 79 mg/dL (70-99); Phosphorus, Blood 2.5 mg/dL (2.5-4.9); Potassium, Blood 3.6 mmol/L (3.5-5.5); Sodium, Blood 133 mmol/L (136-145)
--- NOTE | 2023-06-18 06:15 | NUR ---
SHIFT SUMMARY PATIENT ALERT AND ORIENTED X4. MEDICATED PER EMAR FOR PAIN AT SHIFT CHANGE, PATIENT REPORTED THAT SHE WAS COMFORTABLE THE REST OF THE NIGHT. PATIENT DENIES CHEST PAIN AND SHORTNESS OF BREATH. PATIENT IS ON ROOM AIR WITH SPO2 >90%. BLOOD PRESSURE HYPOTENSIVE AT TIMES, HOWEVER MAP HAS REMAINED >65. PATIENT IS AFIB ON TELE, HAS BEEN IN THE 80'S AT REST, UP TO THE 140'S WITH ACTIVITY. WILL CONTINUE TO MONITOR. CALL LIGHT WITHIN REACH.
--- NOTE | 2023-06-18 09:57 | NUR ---
AM NOTE: PATIENT ALERT AND ORIENTED X4. WEARING GLASSES, PERRLA. DENIES NUMBNESS/TINGLING. CHRONIC BILATERAL HIP PAIN, PATIENT STATES SHE HAS "BONE SPURS" IN LEFT HIP. DENIES HIP PAIN THIS AM. ABLE TO TURN SELF IN BED. LEFT SHOULDER PRECAUTIONS S/P PACER ON 06/17. TELE SHOWING AFIB PACED WITH HR 80'S-100'S AT REST. UP TO 130'S THIS AM WITH MOVEMENT IN BED. SBP 110-120'S. DENIES CHEST PAIN/PRESSURE. COMPLAINS OF SOME SORENESS RELATED TO PACER SITE. DR. WEBB IN THIS AM AND PACER DRESSING CHANGED PER ORDERS OF 4X4 NONADHERANT GAUZE AND PAPER TAPE. WOUND CHECK AND PACER CLINIC APPOINTMENT SET UP. PLAN FOR CHEST XRAY THIS AM. PACER INTERROGATION COMPLETED. PO METOPROLOL GIVEN PER EMAR. PLAN TO GET UP AND SEE HOW HR DOES WITH ACTIVITY. NEW PACER DRESSING C/D/I. VERY SMALL AMOUNT OF BRUISING AT NEW PACER SITE. ON ROOM AIR SATING ABOVE 95%. DENIES SOB. OCCASIONAL COUGH WITH SPUTUM PRODUCTION, PATIENT USING SUCTION IND. EVEN AND UNLABORED RESPIRATIONS. DENIES NICOTINE PATCH THIS AM. BOWEL TONES PRESENT. POOR APPEATITE. FREE WATER RESTRICTION. EATING AND VOIDING WNL. DR. LORD BY THIS AM, THIS RN AT BEDSIDE. PLAN FOR WHEN PATIENT DISCHARGES TO BE ON SALT TABLETS, FREE WATER RESTRICTION OF 1L/DAY AND TO FOLLOW UP THIS TUESDAY AT 2PM IN DR. CARLOS OFFICE. CALL LIGHT IN REACH. DENIES NEEDS AT THIS TIME.
--- NOTE | 2023-06-18 10:29 | NUR ---
PATIENT TO XRAY AT THIS TIME
--- NOTE | 2023-06-18 10:51 | NUR ---
PATIENT BACK FROM CHEST XRAY AT THIS TIME AND UP TO BATHROOM WITH ONE PERSON ASSIST. PATIENT HR TOUCHING 170'S WITH ACTIVITY. PATIENT SLIGHTLY SOB WITH ELEVATED HR BUT DENIES ANY CHEST PAIN/PRESSURE/PALPITATIONS. DR. COOPER UPDATED ON ELEVATED HR WITH ACTIVITY. PATIENT BACK IN BED AT THIS TIME AND HR 90-120'S.
--- NOTE | 2023-06-18 13:42 | NUR ---
PATIENT CONTINUES TO TACH UP TO 140'S WITH MOVEMENT IN BED AND GETTING UP TO RECLINER. PATIENT DOES NOT SUSTAIN 140'S. HR TRENDS DOWN TO 80-120'S ONCE PATIENT SITS OR SETTLES DOWN. DR. COOPER UPDATED ON HR ACTIVITY/TRENDS. ORDERS TO INCREASE METOPROLOL SUCCINATE TO 100MG PO BID STARTING TONIGHT WELL ORDERS FOR MEDICAL STATUS WITH TELE. ORDERS IN PLACE, PADDOCK JUDGE AND STAFF PSYCHIATRIST UPDATED. PATIENT RESTING IN BED AT THIS TIME, DENIES NEEDS. CALL LIGHT IN REACH.
--- NOTE | 2023-06-18 18:50 | NUR ---
SHIFT SUMMARY: NO ACUTE CHANGES. PATIENT REMAINS ALERT AND ORIENTED X4. VITAL SIGNS STABLE. HR TRENDING 70-80'S AT REST UP TO 120-130'S WHEN UP TO RECLINER FOR DINNER. SBP STABLE 130'S. DENIES CHEST PAIN/PRESSURE/PALPITATIONS. LEFT CHEST WALL PACER WNL WITH SLIGHT BRUISING. DRESSING REMAINS C/D/I. POOR APPEATITE. FLUID RESTRICTION IN PLACE. UP TO BATHROOM WITH ONE PERSON ASSIST. FAMILY AT BEDSIDE THROUGHOUT SHIFT. DENIES NEEDS AT THIS TIME. CALL LIGHT IN REACH.
[2023-06-19 04:01] LABS: BASOPHILS ABSOLUTE AUTO 0.02 K/mm3 (0.00-0.23); BASOPHILS PERCENT AUTO 1 % (0-2); EOSINOPHILS ABSOLUTE AUTO 0.07 K/mm3 (0.00-0.68); EOSINOPHILS PERCENT AUTO 2 % (0-6); Hematocrit 36.8 % (33.0-51.0); IMMATURE GRAN ABSOLUTE AUTO 0.04 K/mm3 (0.00-0.10); IMMATURE GRAN PERCENT AUTO 1 % (0-1); LYMPHOCYTES ABSOLUTE AUTO 1.19 K/mm3 (0.84-5.20); LYMPHOCYTES PERCENT AUTO 27 % (21-46); MONOCYTES ABSOLUTE AUTO 0.47 K/mm3 (0.16-1.47); MONOCYTES PERCENT AUTO 11 % (4-13); Mean Corpuscular HGB 33.8 pg (26.0-34.0); Mean Corpuscular HGB Conc 35.3 g/dL (31.5-36.5); Mean Corpuscular Volume 96 fL (80-100); Mean Platelet Volume 10.9 fL (9.1-12.4); NEUTROPHILS PERCENT AUTO 59 % (41-73); Platelet Count 132 K/mm3 (150-400); RDW Coefficient Variation 12.4 % (11.7-14.2); RDW Standard Deviation 43.6 fL (35.1-46.3); Red Blood Cell Count 3.85 M/mm3 (3.80-5.20); White Blood Cell Count 4.39 K/mm3 (4.00-11.30)
[2023-06-19 04:21] VITALS: BP 107/68
[2023-06-19 04:28] LABS: Albumin, Blood 2.3 g/dL (3.4-5.0); Anion Gap 3 mmol/L (6-16); Blood Urea Nitrogen 5 mg/dL (8-24); Bun/Creatinine Ratio 10.2 (12.0-20.0); CO2, Blood 25 mmol/L (21-32); Calcium, Blood 8.6 mg/dL (8.5-10.1); Chloride, Blood 105 mmol/L (98-108); Creatinine, Blood 0.49 mg/dL (0.40-1.00); Glomerular Filtration Rate 101 (60-); Glucose, Blood 105 mg/dL (70-99); Magnesium, Blood 1.6 mg/dL (1.6-2.4); Phosphorus, Blood 2.3 mg/dL (2.5-4.9); Potassium, Blood 3.1 mmol/L (3.5-5.5); Sodium, Blood 133 mmol/L (136-145)
--- NOTE | 2023-06-19 06:55 | NUR ---
END OF SHIFT NOTE. PT HAD AN UNEVENTFUL SHIFT. OOB MULTIPLE TIMES TO THE BATHROOM, MINIMAL ASSISTANCE FROM STAFF. HR MORE CONTROLLED WHEN MOVING. PT IS ABLE TO MAKE NEEDS KNOWN, CALL LIGHT IS WITHIN REACH.
[2023-06-19 07:22] VITALS: BP 108/65
--- NOTE | 2023-06-19 10:04 | NUR ---
AM NOTE: PATIENT ALERT AND ORIENTED X4. PERRLA, WEARING GLASSES. LEFT SHOULDER PRECAUTIONS POST PACER PLACEMENT. DRESSING C/D/I. AFIB WITH HR 60-100'S. ONE PERSON ASSIST TO BATHROOM/RECLINER. EATING AND VOIDING WNL. IV PHOSPHATE INFUSING AT THIS TIME. ON ROOM AIR SATING ABOVE 95%. DENIES NEEDS, CALL LIGHT IN REACH.
[2023-06-19 11:50] VITALS: BP 120/57
[2023-06-19] MEDS ORDERED: B-1100 M1 PO (12:19)
[2023-06-19] MEDS ORDERED: SODCHL1 PO (12:19)
[2023-06-19] MEDS ORDERED: NICO21TP TOP (12:19)
--- NOTE | 2023-06-19 13:06 | NUR ---
DISCHARGE: NO ACUTE CHANGES. PATIENT DISCHARGE WNL. MEDS FAXED TO [facility]. THIS RN REVIEWED MEDICATION, NEW MEDICATIONS, S/S TO RETURN, PACER INSTRUCTIONS, PACER WOUND APPOINTMENT, PACER CLINIC APPOINTMENT, DR. LORD FOLLOW UP, FLUID RESTRICTION, PCP FOLLOW UP AND STOPPED MEDICATIONS. IV REMOVED WNL. SONS IN TO FRONT COUNTER CLERK PATIENT. PATIENT LEFT UNIT VIA WHEELCHAIR WITH ALL PERSONAL BELONGINGS.
== END 2023-06-19 13:09 | disposition home or self-care (01) | DRG 243 ==
LOC: ER 15:19 → ICUE 20:32 → PCU 06-17 11:47
PROVIDERS: Emergency Medicine; Internal Medicine; Internal Medicine Nephrology; Nurse Practitioner Acute Care; Physician Assistant; ADMIT Internal Medicine
PROC: 02HK3JZ Insertion of Pacemaker Lead into Right Ventricle, Percutaneous Approach (ICD-10-PCS; principal; 2023-06-15)
PROC: 5A1223Z Performance of Cardiac Pacing, Continuous (ICD-10-PCS; 2023-06-15)
PROC: 0JH604Z Insertion of Pacemaker, Single Chamber into Chest Subcutaneous Tissue and Fascia, Open Approach (ICD-10-PCS; 2023-06-17)
PROC: 02HK3JZ Insertion of Pacemaker Lead into Right Ventricle, Percutaneous Approach (ICD-10-PCS; 2023-06-17)
DX: I49.5 Sick sinus syndrome (principal); E87.1 Hypo-osmolality and hyponatremia; I13.0 Hypertensive heart and chronic kidney disease with heart failure and stage 1 through stage 4 chronic kidney disease, or unspecified chronic kidney disease; S22.42XA Multiple fractures of ribs, left side, initial encounter for closed fracture; I48.21 Permanent atrial fibrillation; N17.9 Acute kidney failure, unspecified; I50.22 Chronic systolic (congestive) heart failure; E87.3 Alkalosis; I42.9 Cardiomyopathy, unspecified; F17.210 Nicotine dependence, cigarettes, uncomplicated; F10.20 Alcohol dependence, uncomplicated; E86.0 Dehydration; E87.6 Hypokalemia; J44.9 Chronic obstructive pulmonary disease, unspecified; I45.5 Other specified heart block; H26.9 Unspecified cataract; N18.9 Chronic kidney disease, unspecified; E88.09 Other disorders of plasma-protein metabolism, not elsewhere classified; E83.39 Other disorders of phosphorus metabolism; E83.42 Hypomagnesemia; X58.XXXA Exposure to other specified factors, initial encounter; Z88.0 Allergy status to penicillin; Z88.2 Allergy status to sulfonamides; Z88.5 Allergy status to narcotic agent; Z79.01 Long term (current) use of anticoagulants; Z79.899 Other long term (current) drug therapy; Z98.890 Other specified postprocedural states; D75.1 Secondary polycythemia
CPT/HCPCS: 0241U; 33207; 33210; 36415; 71045; 71046; 76937; 80048; 80053; 80069; 80400; 82088; 82533; 83605; 83690; 83735; 83880; 83930; 84100; 84132; 84244; 84295; 84443; 84484; 84550; 85014; 85018; 85025; 85520; 85610; 85730; 93005; 93010; 93308; 96365; 96366; 96368; 99152; 99153; 99291-25; A9270; C1751; C1769; C1781; C1786; C1894; C1898; J0834; J1644; J1650; J2250; J2405; J3010; J3370; J3470; J3475; J3480; J7030; J7040; J7050; J7060; Q9967

== ENCOUNTER → 2023-06-29 | Outpatient (CLI) | payer OTHER ==
[~2023-06-29] MED LIST changes: +ALDACTONE25 MG PO; +ALEN70; +B-1100 M1 PO; +METO100ER; +NICO21TP TOP; +SODCHL1 PO; +TORS10 PO
[2023-06-29 19:15] LABS: Protein, Urine Quantitative 5.5 mg/dL (0.0-11.9)
[2023-06-29 19:19] LABS: Microalbumin, Urine Quant. <5.000 mg/L (0.000-20.000)
== END | disposition home or self-care (01) ==
LOC: LAB 13:15 → LAB SHORT 13:15
PROVIDERS: Family Medicine
DX: E87.1 Hypo-osmolality and hyponatremia (principal); N18.2 Chronic kidney disease, stage 2 (mild); D63.1 Anemia in chronic kidney disease; N25.81 Secondary hyperparathyroidism of renal origin; E55.9 Vitamin D deficiency, unspecified; E78.00 Pure hypercholesterolemia, unspecified; R76.9 Abnormal immunological finding in serum, unspecified; R94.5 Abnormal results of liver function studies
CPT/HCPCS: 81050; 82043; 82570; 84156

== ENCOUNTER → 2024-08-14 | Outpatient (CLI) | payer OTHER ==
[2024-08-14 09:43] LABS: BASOPHILS ABSOLUTE AUTO 0.02 K/mm3 (0.00-0.23); BASOPHILS PERCENT AUTO 0 % (0-2); EOSINOPHILS ABSOLUTE AUTO 0.05 K/mm3 (0.00-0.68); EOSINOPHILS PERCENT AUTO 1 % (0-6); Hematocrit 45.1 % (33.0-51.0); Hemoglobin 15.9 g/dL (11.5-16.0); IMMATURE GRAN ABSOLUTE AUTO 0.03 K/mm3 (0.00-0.10); IMMATURE GRAN PERCENT AUTO 1 % (0-1); LYMPHOCYTES ABSOLUTE AUTO 1.35 K/mm3 (0.84-5.20); LYMPHOCYTES PERCENT AUTO 29 % (21-46); MONOCYTES ABSOLUTE AUTO 0.48 K/mm3 (0.16-1.47); MONOCYTES PERCENT AUTO 11 % (4-13); Mean Corpuscular HGB 32.3 pg (26.0-34.0); Mean Corpuscular HGB Conc 35.3 g/dL (31.5-36.5); Mean Corpuscular Volume 92 fL (80-100); Mean Platelet Volume 10.8 fL (9.1-12.4); NEUTROPHILS ABSOLUTE AUTO 2.66 K/mm3 (1.96-9.15); NEUTROPHILS PERCENT AUTO 58 % (41-73); Platelet Count 163 K/mm3 (150-400); RDW Coefficient Variation 12.7 % (11.7-14.2); RDW Standard Deviation 42.6 fL (35.1-46.3); Red Blood Cell Count 4.92 M/mm3 (3.80-5.20); White Blood Cell Count 4.59 K/mm3 (4.00-11.30)
[2024-08-14 10:24] LABS: Albumin, Blood 3.1 g/dL (3.4-5.0); Albumin/Globulin Ratio 0.7 (0.8-1.8); Bilirubin, Total 0.6 mg/dL (0.1-1.0); Bun/Creatinine Ratio 8.5 (12.0-20.0); Calcium, Blood 8.7 mg/dL (8.5-10.1); Creatinine, Blood 0.94 mg/dL (0.40-1.00); Globulin, Blood 4.7 g/dL (2.2-4.0); Potassium, Blood 3.4 mmol/L (3.5-5.5); Total Protein, Blood 7.8 g/dL (6.4-8.2)
== END ==
LOC: LAB 09:39 → LAB SHORT 09:39
PROVIDERS: Physician Assistant Medical
DX: R10.84 Generalized abdominal pain (principal)
CPT/HCPCS: 80053; 83880; 85025

== ENCOUNTER → 2024-08-15 | Outpatient (CLI) | payer OTHER ==
[2024-08-16 10:57] LABS: Adenovirus F 40/41 Not Detected (NOT DETECT); Astrovirus Not Detected (NOT DETECT); Campylobacter Sp Not Detected (NOT DETECT); Cryptosporidium Not Detected (NOT DETECT); Cyclospora Cayetanensis Not Detected (NOT DETECT); E. Coli O157 Not Detected (NOT DETECT); Entamoeba Histolytica Not Detected (NOT DETECT); Enteroaggregative E. coli-EAEC Not Detected (NOT DETECT); Enteropathogenic E. coli-EPEC Not Detected (NOT DETECT); Enterotoxigenic E. coli-ETEC Not Detected (NOT DETECT); Giardia Lamblia Not Detected (NOT DETECT); Norovirus GI/GII Not Detected (NOT DETECT); Plesiomonas Shigelloides Not Detected (NOT DETECT); Rotavirus A Not Detected (NOT DETECT); Salmonella Sp Not Detected (NOT DETECT); Sapovirus Not Detected (NOT DETECT); Shiga Toxin-prod E. coli-STEC Not Detected (NOT DETECT); Shigella/Enteroin E. coli-EIEC Not Detected (NOT DETECT); Vibrio Cholerae Not Detected (NOT DETECT); Vibrio Sp Not Detected (NOT DETECT); Yersinia Enterocolitica Not Detected (NOT DETECT)
== END ==
LOC: LAB 15:49 → LAB SHORT 15:49
PROVIDERS: Physician Assistant Medical
DX: R10.84 Generalized abdominal pain (principal)
CPT/HCPCS: 87507